=== PATIENT | male | born 1965 | race Caucasian/White ===

== ENCOUNTER 2017-03-06 11:19 | Emergency (ER) | payer MEDICAID ==
[2017-03-06 11:27] VITALS: BP 108/65; PULSE 77; RESP 16; TEMP 97.5; O2SAT 97
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
== END 2017-03-06 14:48 | disposition home or self-care (01) ==
DX: S80.12XA Contusion of left lower leg, initial encounter (principal); V18.0XXA Pedal cycle driver injured in noncollision transport accident in nontraffic accident, initial encounter; Y92.410 Unspecified street and highway as the place of occurrence of the external cause; Y99.8 Other external cause status; Y93.55 Activity, bike riding

== ENCOUNTER 2017-05-01 11:15 | Emergency (ER) | payer MEDICAID ==
[2017-05-01 11:29] VITALS: BP 114/80; PULSE 78; RESP 16; TEMP 98.1; O2SAT 94
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
== END 2017-05-01 14:43 | disposition home or self-care (01) ==
DX: L25.3 Unspecified contact dermatitis due to other chemical products (principal)